=== PATIENT | male | born 1945 | race Asian ===

== ENCOUNTER 2019-11-27 20:00 | Emergency (ER) | payer MEDICARE, MEDICAID ==
[~2019-11-27] VITALS: Ht 154.9 cm; Wt 68.2 kg
[~2019-11-27 20:00] MED LIST: IBUP-1986 PO; RANI-366 PO
[2019-11-27 20:46] VITALS: BP 143/84
== END 2019-11-27 20:48 | disposition home or self-care (01) ==
LOC: ER 20:00
DX: J06.9 Acute upper respiratory infection, unspecified (principal); Z87.440 Personal history of urinary (tract) infections
CPT/HCPCS: 99281

== ENCOUNTER 2019-11-29 09:16 | Emergency (ER) | payer MEDICARE, MEDICAID ==
[~2019-11-29] VITALS: Ht 154.9 cm; Wt 68.2 kg
[2019-11-29 09:23] VITALS: BP 152/91
== END 2019-11-29 10:25 | disposition home or self-care (01) ==
LOC: ER 09:17
DX: J06.9 Acute upper respiratory infection, unspecified (principal); Z98.890 Other specified postprocedural states; Z79.899 Other long term (current) drug therapy
CPT/HCPCS: 71045; 99283